=== PATIENT | female | born 1955 | race African-American/Black ===

== ENCOUNTER → 2021-05-18 | Outpatient (CLI) | payer MEDICARE, BC | LOC: M.MRI 14:08 | PROVIDERS: ATTEND Orthopaedic Surgery | DX: S83.8X1A Sprain of other specified parts of right knee, initial encounter (principal); M17.11 Unilateral primary osteoarthritis, right knee; X58.XXXA Exposure to other specified factors, initial encounter; Y93.89 Activity, other specified; Y92.89 Other specified places as the place of occurrence of the external cause; Y99.8 Other external cause status ==

== ENCOUNTER → 2021-06-01 | Outpatient (CLI) | payer MEDICARE, BC ==
--- NOTE | 2021-06-01 14:28 | EKG ---
[place] [address] ELECTROCARDIOGRAM REPORT Name: MATTEO,ESSIE Room: [facility]#: [id number] Admission: 06/01/21 Attend Phys: Michele Awan, Discharge: Date of : 53 Date of Service: 06/01/211410 Report #: [id number] THIS REPORT FOR: //name// [facility] Test Date: 2021-06-01 Test Time: 14:11:02 Pat Name: ESSIE FELIPE Department: Room: Gender: F Boiler/Chiller Operator: : 1955 Requested By: Michele Awan Order Number: [id number] Nelly MD: Jim Rogers Measurements Intervals [place]y Rate: 72 P: 76 GA: 139 QRS: 60 QRSD: 80 T: 22 QT: 414 QTc: 454 Interpretive Statements Sinus rhythm Probable left atrial enlargement No previous ECG available for comparison Electronically Signed On 06-01-2021 14:27:40 CDT by Jim Rogers [email or web address] <ELECTRONICALLY SIGNED> By: Jim Rogesr MD, [facility] 06/01/21 1427 1411 141 Jim Rogers MD, FACC /EPI
[2021-06-01 15:44] LABS: URINE BILIRUBIN NEGATIVE (Negative); URINE BLOOD NEGATIVE (Negative); URINE CLARITY CLEAR; URINE COLOR YELLOW; URINE GLUCOSE-RANDOM NEGATIVE (Negative); URINE KETONES NEGATIVE (Negative); URINE LEUKOCYTES-REFLEX NEGATIVE (Negative); URINE NITRITE-REFLEX NEGATIVE (Negative); URINE PROTEIN NEGATIVE (Negative); URINE SPECIFIC GRAVITY <= 1.005 (1.005-1.030); URINE UROBILINOGEN 0.2 E.U./dl (0.2-1.0)
[2021-06-01 16:01] LABS: ALBUMIN 3.7 g/dL (3.4-5.0); CALCIUM 8.7 mg/dL (8.5-10.1); CREATININE 0.8 mg/dL (0.6-1.3); POTASSIUM 3.7 mmol/L (3.5-5.1); TOTAL BILIRUBIN 0.3 mg/dL (<0.1-1.0); TOTAL PROTEIN 7.7 g/dL (6.4-8.2)
== END ==
LOC: M.LAB 05:41
PROVIDERS: ATTEND Orthopaedic Surgery
DX: Z01.818 Encounter for other preprocedural examination (principal); M17.11 Unilateral primary osteoarthritis, right knee; Z20.822 Contact with and (suspected) exposure to COVID-19

== ENCOUNTER 2021-06-12 06:47 | Inpatient (IN) | payer MEDICARE, BC ==
[~2021-06-12] VITALS: Ht 165.1 cm; Wt 90.7 kg
[~2021-06-12 06:47] MED LIST: AMLODIPINE-BEN1 EAC3 PO; CRESTOR5 MG PO; LIDODERM1 EACH TRANSDERM; METFORMIN HCL500 M3 PO; NEXIUM 40 MG CA40 M1 PO; VITAMIN D3 COM1 EACH
[2021-06-12 08:06] LABS: HEMATOCRIT 35.3 % (37.0-47.0); HEMOGLOBIN 11.4 gm/dL (12.0-15.0); MCH 28.4 pg (26.0-34.0); MCHC 32.4 g/dL (28.0-37.0); MCV 87.7 fL (80.0-100.0); MPV 8.9 fl. (7.2-11.1); RBC 4.02 mil/uL (4.20-5.00); RDW-CV 16.6 % (10.5-14.5); WBC 9.1 thou/uL (4.0-11.0)
[2021-06-12 08:07] LABS: PROTIME 10.2 Seconds (9.20-11.50)
[2021-06-12 09:07] VITALS: BP 136/63
[2021-06-12 20:00] VITALS: BP 168/74
[2021-06-13] VITALS: BP 138/63
[2021-06-13 04:03] VITALS: BP 132/57
[2021-06-13 04:47] LABS: HEMOGLOBIN 10.3 gm/dL (12.0-15.0)
--- NOTE | 2021-06-13 04:49 | NUR ---
PATIENT HAS REMAINED SOMEWHAT SUBDUED BUT ORIENTED X 4 AND RESTING QUIETLY FROM ARRIVAL TO UNIT THROUGHOUT THE SHIFT. UP TO BSC EARLY AM WITH MIN ASSIST OF ONE WITH GAIT BELT AND WALKER WITH CUEING AND ONE NURSE FOR STAND BY SAFETY DUE TO THIS BEING FIRST TIME UP. ADEQUATE VOID. NO NAUSEA. STATED PAIN LEVELS 7-9/10 PRIOR TO PAIN MEDICATIONS PROVIDED X 3 TO GOOD EFFECT. DRESSING RIGHT KNEE CLEAN AND DRY. VITAL SIGNS STABLE. FALL PRECAUTIONS IN PLACE. CONTINUE TO MONITOR.
--- NOTE | 2021-06-13 06:23 | NUR ---
0600 HEMOVAC DRAIN REMOVED FROM RIGHT KNEE PER ORDER WITHOUT DIFFICULTY. DRESSING APPLIED UNDER SHREE WRAP.
--- NOTE | 2021-06-13 07:01 | NUR ---
NO OT AT THIS TIME, WILL DEFER TO PT.
[2021-06-13 07:47] VITALS: BP 139/57
[2021-06-13 09:42] VITALS: BP 139/57
--- NOTE | 2021-06-13 13:19 | NUR ---
Pt is A&O. Resides at home with her . in room at bedside. Pt is normally active and independent. No DME. No hx of HH or SNF. Pt to dc to home with [facility], CM to fax referral and orders. 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 Anticipate dc later today or tomorrow. Pharmacy [place] [id number], BS[place] [phone]
[2021-06-13 16:00] VITALS: BP 121/51
[2021-06-13 21:00] VITALS: BP 113/67
[2021-06-14 04:14] LABS: HEMATOCRIT 28.9 % (37.0-47.0); HEMOGLOBIN 9.4 gm/dL (12.0-15.0)
--- NOTE | 2021-06-14 07:53 | NUR ---
PATIENT SLEPT PART OF THE NIGHT. PAIN AND NAUSEA MEDICINE WAS GIVEN TWICE. PATIENT WAS PLACED IN CPM THIS MORNING. PATIENT SHOULD DC HOME TODAY. WILL CONTINUE TO MONITOR.
[2021-06-14 08:00] VITALS: BP 116/52
[2021-06-14 11:45] VITALS: BP 122/54
[2021-06-14 13:45] LABS: CALCIUM 8.4 mg/dL (8.5-10.1); POTASSIUM 4.8 mmol/L (3.5-5.1)
--- NOTE | 2021-06-14 14:13 | NUR ---
PT informed CM that Pt vomitted during therapy. CM updated Dr. Sen home [place] with [facility].
[2021-06-14 16:28] VITALS: BP 153/62
--- NOTE | 2021-06-14 17:21 | NUR ---
PATIENT RESTING IN BED. PATIENT IS UP WITH MODERATE ASSIST OF ONE TO COMMODE. PATIENT WAS NAUSEATED AND DIZZY WHEN WORKING WITH THERAPY. PATIENT STILL HAS COMPLAINTS OF NAUSEA, DIZZINESS HAS IMPROVED. IV FLUIDS INFUSING ORDERED. PATIENT HAS INES HOSE, FOOT PUMPS AND POLAR PACK. PATIENT HAS FAIR APPETITE. PATIENT HAS HAD COMPLAINTS OF PAIN TO RIGHT KNEE, TREATED PARTIALLY WITH PERCOCET. PATIENT DENIES ANY NEEDS AT THIS TIME. CALL LIGHT WITHIN REACH.
[2021-06-14 20:30] VITALS: BP 145/56
[2021-06-14 23:57] VITALS: BP 176/69
[2021-06-15 03:35] VITALS: BP 139/58
[2021-06-15 04:51] LABS: HEMATOCRIT 25.8 % (37.0-47.0); HEMOGLOBIN 8.6 gm/dL (12.0-15.0); MCH 29.4 pg (26.0-34.0); MCHC 33.3 g/dL (28.0-37.0); MCV 88.3 fL (80.0-100.0); MPV 9.3 fl. (7.2-11.1); RBC 2.92 mil/uL (4.20-5.00); RDW-CV 16.2 % (10.5-14.5)
[2021-06-15 05:22] LABS: ALBUMIN 2.5 g/dL (3.4-5.0); CALCIUM 7.8 mg/dL (8.5-10.1); CREATININE 0.8 mg/dL (0.6-1.3); MAGNESIUM 1.6 mg/dL (1.8-2.4); POTASSIUM 4.5 mmol/L (3.5-5.1); TOTAL BILIRUBIN 0.5 mg/dL (<0.1-1.0); TOTAL PROTEIN 6.1 g/dL (6.4-8.2)
[2021-06-15 07:55] VITALS: BP 149/81
--- NOTE | 2021-06-15 07:59 | NUR ---
Alert and oriented x 4. Rt knee mepilex dressing and polarcare in place. She did CPM x 2 this shift. Bilat tedhose on. She had pain meds x 4 this shift. She is up with assist x 1 walker and gaitbelt to bedside commode. She slept well.
--- NOTE | 2021-06-15 13:46 | NUR ---
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 CHRISTELLE SANTOROT
--- NOTE | 2021-06-15 15:03 | NUR ---
Anticipate dc to home tomorrow with [facility] , initial referral faxed, dc orders need to be faxed to [phone] at [place].
[2021-06-15 15:55] VITALS: BP 162/70
--- NOTE | 2021-06-15 18:33 | NUR ---
PATIENT RESTING UP IN CHAIR. PATIENT IS UP WITH ASSIST OF ONE WITH GAIT BELT AND WALKER. PATIENT HAS COMPLAINTS OF PAIN TO RIGHT KNEE TREATED ADEQUATELY WITH MEDICATION. PATIENT HAS BEEN ON CPM. PATIENT HAS POLAR CARE AND INES HOSE ON. PATIENT HAS BEEN NAUSEATED WITH THERAPY, ZOFRAN GIVEN. PATIENT HAS NOT HAD BOWEL MOVEMENT AND DENIES PASSING GAS. MIRALAX AND SENNA GIVEN ORDERED. PATIENT DENIES ANY NEEDS AT THIS TIME. CALL LIGHT WITHIN REACH.
[2021-06-16 05:00] VITALS: BP 148/58
--- NOTE | 2021-06-16 07:20 | OP ---
[facility] [address] [place] [address] OPERATIVE REPORT Name: ESSIE FELIPE JOSEPHINE Room: [address] M.R.#: [id number] Admission: 06/12/21 Attend Phys: Carmelita Joyner Discharge: Date of : 53 Report #: [id number] THIS REPORT FOR: cc: Katie Bueno MD,Michele Fisher MD, II, DO ~ DATE OF SURGERY: 06/12/2021 PREOPERATIVE DIAGNOSIS: Right knee osteoarthritis. POSTOPERATIVE DIAGNOSIS: Right knee osteoarthritis. PROCEDURE: Right total knee arthroplasty. SURGEON: Michele Awan II, DO RETAIL KEY HOLDER: TRIXIE Joseph ANESTHESIA: General endotracheal. ESTIMATED BLOOD LOSS: 50 mL. ANTIBIOTICS: Ancef preoperatively. DRAINS: Medium Hemovac. COMPLICATIONS: None. CONDITION: The patient stable to recovery room. IMPLANTS: Listed in the operative record and progress note. BRIEF HISTORY: The patient was seen in the preoperative area, preoperative H and P was performed. Site was marked, questions were answered. Risks and benefits were discussed with the patient in detail about surgery. The patient wished to proceed assuming all risks. DESCRIPTION OF PROCEDURE: Patient was taken to the operative suite and placed supine on the operating table under appropriate anesthesia. A well-padded tourniquet was applied to the upper thigh, which was inflated to 300 mmHg after gravity exsanguination. The operative knee was sterilely prepped and draped. She was given a midline incision, was carried out to subcutaneous tissues. A medial parapatellar arthrotomy was performed, carried down to bone. Patella was then everted and excess soft tissue was removed around the femur. The femoral cutting block was then applied, checked with a drop in rotation alignment, pinned in appropriate position and appropriate cuts were made. A 4-in-1 [place] [address] OPERATIVE REPORT Name: ESSIE FELIPE JOSEPHINE Room: [address] IN [facility].#: [id number] Admission: 06/12/21 Attend Phys: Carmelita Joyner Discharge: Date of : 53 Report #: [id number] block was then applied, checked for rotation alignment, pinned in appropriate position, appropriate cuts were made. The tibia was exposed. Excess meniscus was removed. Retractor was placed on collateral ligaments. During this time, there was noted to be thinning of the patella due to the patients possible previous injuries in the past as well as significant arthritis, rubbing with anterior spur on the patella tendon. Utilizing a #5 FiberWire and a [place] stitch, both proximal and distal ends of the patellar tendon were sutured and held together with Allis clamp. These were then tied in appropriate fashion using [id number] knots to reapproximate the patellar tendon weakened area and reinforced this for continued healing. The retractors were placed on collateral ligaments. The tibial cutting block was then applied, pinned in appropriate position, checked with a drop vernell for rotation alignment and slope and appropriate cut was made. The tibial bone was removed. The tibial baseplate was then pinned in appropriate position. Femur was then applied and box cut was reamed. This was trialed with appropriate spacer, which showed excellent fit and fill and excellent stability of the knee through all range of motion. The patella was then reamed in appropriate fashion and sized to appropriate size. Three peg holes were then drilled and the patella trial was taken through range of motion. There was excellent tracking of the patella in the patella groove and excellent flexion and extension of the knee. These trials were removed. The tibia was punched in appropriate fashion. Bony ends were cleansed with Pulsavac irrigation and cement was mixed, applied to final implants. These were malleted into position and held the knee extension and compressed to allow cement to cure. After it cured, excess was removed using a [place] and osteotome. Wound was then irrigated to remove all excess cement debris. The final plastic spacer was then malleted into position. The knee was once again reduced and it showed an excellent patellar tracking and excellent stability of the knee throughout all range of motion. Tourniquet was deflated. Hemostasis was maintained with electrocautery. The pain cocktail was injected. The capsule was closed with #2 FiberWire and #1 Vicryl in [id number] fashion. Skin was closed with 2-0 Vicryl and running Monocryl stitch. Dermabond and sterile dressing applied. The patient transported to recovery in stable condition. Counts were correct throughout the procedure. Amended report: Correct demographic error <ELECTRONICALLY SIGNED> By: Michele Awan II, DO 06/16/21 0720 [id number] [id number] Awan II, DO /nt
--- NOTE | 2021-06-16 08:23 | NUR ---
PATIENT HAS SLEPT WELL THROUGHOUT MOST OF THE NIGHT. VSS ON RA. MEDICATIONS GIVEN ORDERED AND CHARTED. PATIENT UP WITH ASSIST OF 1-2 WITH GAITBELT AND WALKER. DRESSING TO RIGHT KNEE-C/D/I. SCD'S AND POLAR CARE IN PLACE. MEDICATIONS GIVEN TO HELP PATIENT TO TRY TO HAVE A BM. NO BM DURING SHIFT. LEFT UPPER ARM MIDLINE-NS @ 80ML/HR. PATIENT INSTRUCTED TO USE CALL LIGHT WHEN NEEDING ASSISTANCE. HOURLY ROUNDS MADE. WILL CONTINUE WITH PLAN OF CARE AND NURSING TO MONITOR.
[2021-06-16 09:15] VITALS: BP 142/61
[2021-06-16] MEDS ORDERED: ZOFRAN ODT4 MG PO (12:45)
[2021-06-16] MEDS ORDERED: XARELTO10 MG PO (12:45)
--- NOTE | 2021-06-16 16:27 | NUR ---
PT DC TO HOME WITH HH AT 1730 BY WHEELCHAIR WITH NURSING STAFF AND . IV OUT. DRESSING C/D/I. PAIN CONTROLLED. NAUSEA CONTROLLED. CPM AND POLAR PACK SENT WITH PT. PERSONAL BELONGINGS SENT WITH PT.
== END 2021-06-16 16:29 | disposition home health service (06) | DRG 470 ==
LOC: M.ORTHSURG 06:47 → M.3W 07:13 → M.TBA 07:13 → M.3W 19:43
PROVIDERS: Internal Medicine; Orthopaedic Surgery; ADMIT Internal Medicine; ATTEND Internal Medicine
PROC: 0SRC0J9 Replacement of Right Knee Joint with Synthetic Substitute, Cemented, Open Approach (ICD-10-PCS; principal; 2021-06-12)
PROC: 3E0T3BZ Introduction of Anesthetic Agent into Peripheral Nerves and Plexi, Percutaneous Approach (ICD-10-PCS; 2021-06-12)
DX: M17.11 Unilateral primary osteoarthritis, right knee (principal); K56.7 Ileus, unspecified; E44.0 Moderate protein-calorie malnutrition; E11.9 Type 2 diabetes mellitus without complications; E78.00 Pure hypercholesterolemia, unspecified; K21.9 Gastro-esophageal reflux disease without esophagitis; K59.00 Constipation, unspecified; Z20.822 Contact with and (suspected) exposure to COVID-19; Z88.5 Allergy status to narcotic agent; Z90.49 Acquired absence of other specified parts of digestive tract; Z90.710 Acquired absence of both cervix and uterus; Z72.89 Other problems related to lifestyle; Z68.33 Body mass index [BMI] 33.0-33.9, adult